=== PATIENT | female | born 1960 | race Caucasian/White ===

== ENCOUNTER 2017-11-02 15:28 | Inpatient (IN) | payer SELFPAY ==
[~2017-11-02] VITALS: Ht 154.9 cm; Wt 62.0 kg
[2017-11-02] MEDS ORDERED: BENTYL 20MG20 MG/TAB PO (15:37)
[2017-11-02] MEDS ORDERED: AMITRIPTYLINE H25 M1 PO (15:37)
[2017-11-02] MEDS ORDERED: TAGAMET HB200 MG PO (15:38)
[2017-11-02 17:27] LABS: COLLECTION METHOD CLEAN CATCH
[2017-11-02 17:30] LABS: BASO # 0.1 (0.0-0.2); BASO % 0.5 % (0.0-2.0); EOS # 0.1 (0.0-0.7); EOS % 0.6 % (0-4.0); GRAN % 73.2 % (42.2-75.2); HEMOGLOBIN 15.5 g/dl (12.5-16.0); LYMPH # 1.8 (1.2-3.4); LYMPH % 16.8 % (20.0-51.0); MEAN CELL VOLUME 93 fl (80.0-100.0); MEAN CORPUSCULAR HEMOGLOBIN 31 pg (27.0-31.0); MEAN CORPUSCULAR HGB CONC 33 g/dl (33.0-37.0); MEAN PLATELET VOLUME 9.5 fl (7.4-10.4); MONO # 0.9 (0.1-0.6); MONO % 8.4 % (1.7-9.3); PLATELET COUNT 486 K/mm3 (130-400); RED BLOOD COUNT 5.06 M/mm3 (4.10-5.30); REDCELL DISTRIBUTION WIDTH-CV 14.2 % (11.5-14.5)
[2017-11-02 17:35] LABS: MUCOUS Present /lpf; PH 5 (5-8); URINE APPEARANCE Hazy; URINE BACTERIA Rare /hpf; URINE BILIRUBIN Positive (NEGATIVE); URINE BLOOD Negative (NEGATIVE); URINE COLOR Amber; URINE GLUCOSE Negative (NEGATIVE); URINE KETONE 2+ (NEGATIVE); URINE LEUKOCYTE ESTERASE Negative (NEGATIVE); URINE NITRATE Negative (NEGATIVE); URINE PROTEIN(semi-quant) 2+ (NEGATIVE); URINE UROBILINOGEN >=4.0 mg/dL (NEGATIVE)
[2017-11-02 17:43] LABS: ALBUMIN 4.5 gm/dL (3.5-5.0); BILIRUBIN,TOTAL 0.7 mg/dL (0.0-1.0); CALCIUM 10.4 mg/dL (8.4-10.2); CREATININE, serum 0.73 mg/dL (0.52-1.25); POTASSIUM 3.7 mmol/L (3.4-5.0); TOTAL PROTEIN 8.3 gm/dL (6.4-8.2)
[2017-11-02 21:36] VITALS: BP 167/99; PULSE 110; TEMP 98
[2017-11-03 01:54] VITALS: BP 160/97; PULSE 97; TEMP 98.1
[2017-11-03 05:10] VITALS: BP 163/89; PULSE 93; TEMP 98.3
[2017-11-03 10:12] VITALS: BP 154/91; PULSE 98; TEMP 98.1
[2017-11-03 13:48] VITALS: BP 137/91; PULSE 100; TEMP 98.2
[2017-11-03 17:59] VITALS: BP 151/92; PULSE 96; TEMP 98.1
[2017-11-03 21:48] VITALS: BP 153/83; PULSE 82; TEMP 98.3
[2017-11-04] VITALS (7 sets, daily range): BP systolic 138–175; BP diastolic 71–91; PULSE 52–77; TEMP 97.5–98.4
[2017-11-04 07:47] LABS: MEAN CELL VOLUME 93 fl (80.0-100.0); MEAN CORPUSCULAR HGB CONC 33 g/dl (33.0-37.0); MEAN PLATELET VOLUME 9.7 fl (7.4-10.4); PLATELET COUNT 441 K/mm3 (130-400); RED BLOOD COUNT 3.99 M/mm3 (4.10-5.30)
[2017-11-04 07:50] LABS: HEMATOCRIT 36.9 % (37.0-47.0); HEMOGLOBIN 12.2 g/dl (12.5-16.0); MEAN CORPUSCULAR HEMOGLOBIN 31 pg (27.0-31.0)
[2017-11-04 07:57] LABS: CALCIUM 9.4 mg/dL (8.4-10.2); CREATININE, serum 0.53 mg/dL (0.52-1.25); POTASSIUM 3.2 mmol/L (3.4-5.0)
[2017-11-04 08:21] LABS: C-REACTIVE PROTEIN 6.6 mg/dL (0.0-0.9)
[2017-11-05 06:17] VITALS: BP 158/74; PULSE 54; TEMP 97.7
[2017-11-05 06:48] LABS: MEAN CELL VOLUME 91 fl (80.0-100.0); MEAN CORPUSCULAR HGB CONC 33 g/dl (33.0-37.0); MEAN PLATELET VOLUME 9.8 fl (7.4-10.4); PLATELET COUNT 380 K/mm3 (130-400); RED BLOOD COUNT 3.52 M/mm3 (4.10-5.30); REDCELL DISTRIBUTION WIDTH-CV 14.3 % (11.5-14.5)
[2017-11-05 07:01] LABS: HEMOGLOBIN 10.7 g/dl (12.5-16.0); MEAN CORPUSCULAR HEMOGLOBIN 30 pg (27.0-31.0)
[2017-11-05 07:04] LABS: BILIRUBIN,TOTAL 0.1 mg/dL (0.0-1.0); C-REACTIVE PROTEIN 4.4 mg/dL (0.0-0.9); CALCIUM 8.9 mg/dL (8.4-10.2); CREATININE, serum 0.55 mg/dL (0.52-1.25)
[2017-11-05 07:14] VITALS: BP 164/70; PULSE 53; TEMP 97.7
[2017-11-05 07:25] LABS: POTASSIUM 2.7 mmol/L (3.4-5.0)
[2017-11-05 10:28] VITALS: BP 138/63; PULSE 73; TEMP 97.6
[2017-11-05 12:30] VITALS: BP 149/95; PULSE 78; TEMP 97.4
== END 2017-11-05 15:35 | disposition home or self-care (01) | DRG 392 ==
LOC: COL.ER 15:28 → SURG 19:15
PROVIDERS: Emergency Medicine; Internal Medicine Gastroenterology; Surgery
PROC: 0DJD8ZZ Inspection of Lower Intestinal Tract, Via Natural or Artificial Opening Endoscopic (ICD-10-PCS; principal; 2017-11-04 15:00)
DX: K52.9 Noninfective gastroenteritis and colitis, unspecified (principal); K80.20 Calculus of gallbladder without cholecystitis without obstruction; F17.210 Nicotine dependence, cigarettes, uncomplicated
CPT/HCPCS: J0696; J1650; J1956; J2270; J2405; J2704; J2920; J3480; J7030; J7512; Q9967

== ENCOUNTER → 2017-12-02 | Outpatient (CLI) | payer SELFPAY ==
[~2017-12-02] MED LIST: AMITRIPTYLINE H25 M1 PO; BENTYL 20MG20 MG/TAB PO; TAGAMET HB200 MG PO
== END ==
LOC: COL.RAD 11:22
DX: K59.8 Other specified functional intestinal disorders (principal)
CPT/HCPCS: Q9967

== ENCOUNTER 2018-02-10 13:00 | Observation (INO) | payer SELFPAY ==
[~2018-02-10] VITALS: Ht 153.7 cm; Wt 73.8 kg
[2018-02-10 14:06] LABS: COLLECTION METHOD CLEAN CATCH
[2018-02-10 14:09] LABS: BASO # 0.1 (0.0-0.2); BASO % 0.3 % (0.0-2.0); EOS % 0.1 % (0-4.0); GRAN # 14.7 (1.4-6.5); GRAN % 89.9 % (42.2-75.2); HEMATOCRIT 46.5 % (37.0-47.0); HEMOGLOBIN 15.3 g/dl (12.5-16.0); LYMPH # 0.8 (1.2-3.4); LYMPH % 4.7 % (20.0-51.0); MEAN CELL VOLUME 96 fl (80.0-100.0); MEAN CORPUSCULAR HEMOGLOBIN 31 pg (27.0-31.0); MEAN CORPUSCULAR HGB CONC 33 g/dl (33.0-37.0); MEAN PLATELET VOLUME 9.1 fl (7.4-10.4); MONO # 0.8 (0.1-0.6); MONO % 4.8 % (1.7-9.3); PLATELET COUNT 588 K/mm3 (130-400); RED BLOOD COUNT 4.87 M/mm3 (4.10-5.30); REDCELL DISTRIBUTION WIDTH-CV 14.1 % (11.5-14.5)
[2018-02-10 14:19] LABS: MUCOUS Present /lpf; PH 5 (5-8); SQUAMOUS EPITHELIAL 0-2 /hpf; URINE APPEARANCE Hazy; URINE BACTERIA None Seen /hpf; URINE BILIRUBIN Negative (NEGATIVE); URINE BLOOD Negative (NEGATIVE); URINE COLOR Yellow; URINE GLUCOSE Negative (NEGATIVE); URINE KETONE 1+ (NEGATIVE); URINE LEUKOCYTE ESTERASE Negative (NEGATIVE); URINE NITRATE Negative (NEGATIVE); URINE PROTEIN(semi-quant) 2+ (NEGATIVE); URINE RBC 0-2 /hpf
[2018-02-10 14:22] LABS: ALBUMIN 4.3 gm/dL (3.5-5.0); BILIRUBIN,TOTAL 0.8 mg/dL (0.0-1.0); CALCIUM 10.2 mg/dL (8.4-10.2); CREATININE, serum 0.65 mg/dL (0.52-1.25); POTASSIUM 4.3 mmol/L (3.4-5.0); TOTAL PROTEIN 8.8 gm/dL (6.4-8.2)
[2018-02-10 17:55] VITALS: PULSE 97; TEMP 97.9
[2018-02-10 19:50] VITALS: BP 169/73; PULSE 102; TEMP 98.3
[2018-02-11] VITALS (11 sets, daily range): BP systolic 114–166; BP diastolic 55–95; PULSE 59–104; TEMP 98–98.8
[2018-02-11] MEDS ORDERED: NORCO 325 MG-51 TAB PO (13:53)
== END 2018-02-11 15:53 | disposition home or self-care (01) ==
LOC: COL.ER 13:00 → SURG 16:37
PROVIDERS: Emergency Medicine
DX: K80.10 Calculus of gallbladder with chronic cholecystitis without obstruction (principal); Z93.3 Colostomy status; F17.210 Nicotine dependence, cigarettes, uncomplicated
CPT/HCPCS: G0378; J0690; J0696; J1100; J1170; J1885; J2270; J2310; J2405; J2704; J7030; J7120

== ENCOUNTER 2018-03-04 21:27 | Emergency (ER) | payer OTHER ==
[~2018-03-04] VITALS: Ht 154.9 cm; Wt 72.7 kg
[~2018-03-04 21:27] MED LIST changes: +NORCO 325 MG-51 TAB PO
[2018-03-04 21:32] VITALS: TEMP 96.9
[2018-03-04 21:59] LABS: BASO # 0.1 (0.0-0.2); BASO % 0.4 % (0.0-2.0); EOS # 0.2 (0.0-0.7); EOS % 1.1 % (0-4.0); GRAN # 10.9 (1.4-6.5); GRAN % 77.3 % (42.2-75.2); HEMATOCRIT 47.7 % (37.0-47.0); HEMOGLOBIN 15.6 g/dl (12.5-16.0); LYMPH # 2.1 (1.2-3.4); LYMPH % 14.9 % (20.0-51.0); MEAN CELL VOLUME 95 fl (80.0-100.0); MEAN CORPUSCULAR HEMOGLOBIN 31 pg (27.0-31.0); MEAN CORPUSCULAR HGB CONC 33 g/dl (33.0-37.0); MEAN PLATELET VOLUME 9.1 fl (7.4-10.4); MONO # 0.8 (0.1-0.6); MONO % 5.8 % (1.7-9.3); PLATELET COUNT 642 K/mm3 (130-400); RED BLOOD COUNT 5.05 M/mm3 (4.10-5.30); REDCELL DISTRIBUTION WIDTH-CV 13.5 % (11.5-14.5)
[2018-03-04 22:07] LABS: ALBUMIN 4.6 gm/dL (3.5-5.0); BILIRUBIN,TOTAL 0.9 mg/dL (0.0-1.0); CALCIUM 10.6 mg/dL (8.4-10.2); CREATININE, serum 0.74 mg/dL (0.52-1.25); POTASSIUM 4.2 mmol/L (3.4-5.0); TOTAL PROTEIN 9.7 gm/dL (6.4-8.2)
[2018-03-04 22:30] LABS: INR 1.1 (0.8-3.0)
[2018-03-05 04:00] VITALS: BP 153/99; PULSE 96
== END 2018-03-05 04:28 | disposition short-term general hospital (02) ==
LOC: COL.ER 21:27 → SURG 23:03 → COL.ER 23:03 → SURG 23:03 → COL.ER 03-05 04:28
PROVIDERS: Emergency Medicine
DX: K50.00 Crohn's disease of small intestine without complications (principal); F17.210 Nicotine dependence, cigarettes, uncomplicated; Z98.51 Tubal ligation status; Z98.890 Other specified postprocedural states; Z90.49 Acquired absence of other specified parts of digestive tract
CPT/HCPCS: J0744; J1170; J2405; J2550; J2765; J3010; J7030; J7050; Q9967

== ENCOUNTER 2018-03-23 19:05 | Inpatient (IN) | payer OTHER ==
[~2018-03-23] VITALS: Ht 154.9 cm; Wt 73.1 kg
[2018-03-23 19:35] LABS: BASO # 0.1 (0.0-0.2); BASO % 0.4 % (0.0-2.0); EOS # 0.1 (0.0-0.7); EOS % 0.8 % (0-4.0); GRAN # 10.4 (1.4-6.5); GRAN % 77.2 % (42.2-75.2); HEMATOCRIT 47.2 % (37.0-47.0); HEMOGLOBIN 15.6 g/dl (12.5-16.0); LYMPH # 2.2 (1.2-3.4); LYMPH % 16.3 % (20.0-51.0); MEAN CELL VOLUME 92 fl (80.0-100.0); MEAN CORPUSCULAR HEMOGLOBIN 30 pg (27.0-31.0); MEAN CORPUSCULAR HGB CONC 33 g/dl (33.0-37.0); MEAN PLATELET VOLUME 8.8 fl (7.4-10.4); MONO # 0.7 (0.1-0.6); PLATELET COUNT 547 K/mm3 (130-400); RED BLOOD COUNT 5.15 M/mm3 (4.10-5.30); REDCELL DISTRIBUTION WIDTH-CV 13.9 % (11.5-14.5)
[2018-03-23 19:51] LABS: ALBUMIN 4.8 gm/dL (3.5-5.0); C-REACTIVE PROTEIN 4.7 mg/dL (0.0-0.9); CALCIUM 10.9 mg/dL (8.4-10.2); CREATININE, serum 0.83 mg/dL (0.52-1.25); POTASSIUM 3.7 mmol/L (3.4-5.0)
[2018-03-23 21:55] VITALS: BP 162/123; PULSE 112; TEMP 97.7
[2018-03-24] VITALS (8 sets, daily range): BP systolic 136–185; BP diastolic 73–117; PULSE 75–116; TEMP 98.2–99
[2018-03-24 06:57] LABS: HEMATOCRIT 43.8 % (37.0-47.0); HEMOGLOBIN 14.8 g/dl (12.5-16.0); MEAN CELL VOLUME 91 fl (80.0-100.0); MEAN CORPUSCULAR HEMOGLOBIN 31 pg (27.0-31.0); MEAN CORPUSCULAR HGB CONC 34 g/dl (33.0-37.0); MEAN PLATELET VOLUME 9.3 fl (7.4-10.4); PLATELET COUNT 517 K/mm3 (130-400); RED BLOOD COUNT 4.84 M/mm3 (4.10-5.30); REDCELL DISTRIBUTION WIDTH-CV 14.1 % (11.5-14.5)
[2018-03-24 07:47] LABS: BAND 46 % (0-10); LYMPHOCYTE 9 % (20.0-51.0); NEUTROPHILS 43 % (42.0-75.2)
[2018-03-24 07:48] LABS: PLATELET ESTIMATE INCREASED (NORMAL)
[2018-03-24 10:45] LABS: CALCIUM 9.4 mg/dL (8.4-10.2); CREATININE, serum 0.61 mg/dL (0.52-1.25); POTASSIUM 4.1 mmol/L (3.4-5.0)
[2018-03-25 04:32] VITALS: BP 123/68; PULSE 82; TEMP 97.9
[2018-03-25 07:32] VITALS: BP 134/68; PULSE 61; TEMP 98.2
[2018-03-25 11:16] VITALS: BP 138/63; PULSE 62; TEMP 98.2
[2018-03-25 15:10] VITALS: BP 143/79; PULSE 59; TEMP 98
[2018-03-25 19:51] VITALS: BP 153/70; PULSE 43; TEMP 98.2
[2018-03-26 03:52] VITALS: BP 130/58; PULSE 56; TEMP 98
[2018-03-26 07:43] VITALS: BP 151/69; PULSE 46; TEMP 97.9
[2018-03-26 10:47] VITALS: BP 150/66; PULSE 54; TEMP 98.3
[2018-03-26] MEDS ORDERED: PREDNISONE 5MG5 MG PO (15:54)
[2018-03-26 16:33] VITALS: BP 167/47; PULSE 64; TEMP 98.6
== END 2018-03-26 22:10 | disposition home or self-care (01) | DRG 386 ==
LOC: COL.ER 19:05 → SURG 20:51
PROVIDERS: Emergency Medicine; Nurse Practitioner Family; Surgery
DX: K50.812 Crohn's disease of both small and large intestine with intestinal obstruction (principal); Z91.14 Patient's other noncompliance with medication regimen
CPT/HCPCS: 99223; 99232-AI; G0378; J0360; J0744; J1170; J1720; J2405; J2550; J7030; Q9967

== ENCOUNTER 2018-07-14 05:22 | Inpatient (IN) | payer OTHER ==
[~2018-07-14] VITALS: Ht 152.4 cm; Wt 81.5 kg
[~2018-07-14 05:22] MED LIST changes: +PREDNISONE 5MG5 MG PO
[2018-07-14 05:48] LABS: BASO % 0.4 % (0.0-2.0); EOS # 0.2 (0.0-0.7); EOS % 2.5 % (0-4.0); GRAN # 6.7 (1.4-6.5); GRAN % 72.1 % (42.2-75.2); HEMATOCRIT 42.8 % (37.0-47.0); HEMOGLOBIN 13.5 g/dl (12.5-16.0); LYMPH # 1.8 (1.2-3.4); LYMPH % 19.9 % (20.0-51.0); MEAN CELL VOLUME 93 fl (80.0-100.0); MEAN CORPUSCULAR HEMOGLOBIN 29 pg (27.0-31.0); MEAN CORPUSCULAR HGB CONC 32 g/dl (33.0-37.0); MONO # 0.4 (0.1-0.6); MONO % 4.6 % (1.7-9.3); PLATELET COUNT 455 K/mm3 (130-400); RED BLOOD COUNT 4.62 M/mm3 (4.10-5.30); REDCELL DISTRIBUTION WIDTH-CV 14.8 % (11.5-14.5)
[2018-07-14 06:03] LABS: ALBUMIN 4.4 gm/dL (3.5-5.0); BILIRUBIN,TOTAL 0.6 mg/dL (0.0-1.0); C-REACTIVE PROTEIN 3.8 mg/dL (0.0-0.9); CREATININE, serum 0.88 mg/dL (0.52-1.25); POTASSIUM 4.2 mmol/L (3.4-5.0); TOTAL PROTEIN 8.3 gm/dL (6.4-8.2)
[2018-07-14] MEDS ORDERED: APRISO0.375 GM PO (06:20)
[2018-07-14] MEDS ORDERED: HCTZ 25MG TAB25 MG PO (06:21)
[2018-07-14] MEDS ORDERED: PRINIVIL20 MG PO (06:21)
[2018-07-14] MEDS ORDERED: TAGAMET200 MG PO (06:22)
[2018-07-14] MEDS ORDERED: IMODIUM 2MG CAPS2 MG PO (06:23)
[2018-07-14 08:54] LABS: COLLECTION METHOD CLEAN CATCH
[2018-07-14 09:10] LABS: MUCOUS Present /lpf; PH 5 (5-8); URINE APPEARANCE Cloudy; URINE BACTERIA Rare /hpf; URINE BILIRUBIN Negative (NEGATIVE); URINE BLOOD Negative (NEGATIVE); URINE COLOR Yellow; URINE GLUCOSE Negative (NEGATIVE); URINE KETONE Negative (NEGATIVE); URINE LEUKOCYTE ESTERASE 3+ (NEGATIVE); URINE NITRATE Negative (NEGATIVE); URINE PROTEIN(semi-quant) Negative (NEGATIVE); URINE UROBILINOGEN Negative (NEGATIVE)
[2018-07-14 11:41] VITALS: BP 154/84; PULSE 92; TEMP 98
[2018-07-14 11:43] VITALS: BP 154/84; PULSE 92; TEMP 98
[2018-07-14 16:09] VITALS: BP 153/88; PULSE 113; TEMP 97.7
[2018-07-14 18:29] VITALS: BP 153/82; PULSE 121; TEMP 97.8
[2018-07-14 21:44] VITALS: BP 144/91; PULSE 114; TEMP 98
[2018-07-15 04:18] VITALS: BP 113/73; PULSE 97; TEMP 98
[2018-07-15 06:28] LABS: HEMATOCRIT 38.8 % (37.0-47.0); HEMOGLOBIN 12.1 g/dl (12.5-16.0); MEAN CELL VOLUME 94 fl (80.0-100.0); MEAN CORPUSCULAR HEMOGLOBIN 29 pg (27.0-31.0); MEAN CORPUSCULAR HGB CONC 31 g/dl (33.0-37.0); MEAN PLATELET VOLUME 9.4 fl (7.4-10.4); PLATELET COUNT 439 K/mm3 (130-400); RED BLOOD COUNT 4.12 M/mm3 (4.10-5.30); REDCELL DISTRIBUTION WIDTH-CV 14.8 % (11.5-14.5)
[2018-07-15 06:43] LABS: ALBUMIN 3.5 gm/dL (3.5-5.0); BILIRUBIN,TOTAL 0.4 mg/dL (0.0-1.0); CALCIUM 8.3 mg/dL (8.4-10.2); CREATININE, serum 0.77 mg/dL (0.52-1.25); MAGNESIUM 1.7 mg/dL (1.6-2.3); POTASSIUM 4.6 mmol/L (3.4-5.0); TOTAL PROTEIN 6.7 gm/dL (6.4-8.2)
[2018-07-15 06:55] LABS: BAND 25 % (0-10); LYMPHOCYTE 6 % (20.0-51.0); NEUTROPHILS 67 % (42.0-75.2); PLATELET ESTIMATE INCREASED (NORMAL); STOMATOCYTE 1+
[2018-07-15 07:27] VITALS: BP 109/64; PULSE 98; TEMP 98.4
[2018-07-15 11:54] VITALS: BP 107/64; PULSE 89; TEMP 98
[2018-07-15 16:04] VITALS: BP 98/53; PULSE 84; TEMP 97.4
[2018-07-15 21:55] VITALS: BP 124/64; PULSE 85; TEMP 97.9
[2018-07-16 03:43] VITALS: BP 119/66; PULSE 74; TEMP 97.8
[2018-07-16 06:13] LABS: BASO % 0.1 % (0.0-2.0); GRAN # 7.5 (1.4-6.5); GRAN % 88.5 % (42.2-75.2); LYMPH # 0.6 (1.2-3.4); LYMPH % 6.5 % (20.0-51.0); MEAN CELL VOLUME 96 fl (80.0-100.0); MEAN CORPUSCULAR HGB CONC 30 g/dl (33.0-37.0); MEAN PLATELET VOLUME 9.4 fl (7.4-10.4); MONO # 0.4 (0.1-0.6); MONO % 4.2 % (1.7-9.3); RED BLOOD COUNT 3.12 M/mm3 (4.10-5.30); REDCELL DISTRIBUTION WIDTH-CV 15.2 % (11.5-14.5)
[2018-07-16 06:17] LABS: ALANINE AMINOTRANSFERASE 82 U/L (9-52); ALKALINE PHOSPHATASE 75 U/L (50-136); ANION GAP 5 mmol/L (7-16); AST,SGOT 37 U/L (15-37); BILIRUBIN,TOTAL < 0.1 mg/dL (0.0-1.0); BLOOD UREA NITROGEN 13 mg/dL (7-17); CALCIUM 7.8 mg/dL (8.4-10.2); CARBON DIOXIDE 22 mmol/L (22-30); CHLORIDE 113 mmol/L (98-107); CREATININE, serum 0.62 mg/dL (0.52-1.25); GLUCOSE 138 mg/dL (74-106); POTASSIUM 3.8 mmol/L (3.4-5.0); SODIUM 140 mmol/L (137-145); TOTAL PROTEIN 5.9 gm/dL (6.4-8.2)
[2018-07-16 06:59] LABS: HEMATOCRIT 29.9 % (37.0-47.0); HEMOGLOBIN 9.1 g/dl (12.5-16.0); MEAN CORPUSCULAR HEMOGLOBIN 29 pg (27.0-31.0); PLATELET COUNT 329 K/mm3 (130-400)
[2018-07-16 08:06] VITALS: BP 130/64; PULSE 73; TEMP 97.8
[2018-07-16 11:22] VITALS: BP 138/81; PULSE 69; TEMP 97.9
[2018-07-16] MEDS ORDERED: NORCO 325 MG-51 TAB PO (11:51)
[2018-07-16] MEDS ORDERED: PREDNISONE10 MG PO (11:51)
== END 2018-07-16 13:24 | disposition home or self-care (01) | DRG 387 ==
LOC: COL.ER 05:22 → MEDICAL 08:30
PROVIDERS: Emergency Medicine; Internal Medicine; Physician Assistant
DX: K50.012 Crohn's disease of small intestine with intestinal obstruction (principal); I10 Essential (primary) hypertension; Z87.891 Personal history of nicotine dependence
CPT/HCPCS: 99222-AI; 99232-AI; 99239; C9113; J0360; J0696; J1650; J1956; J2270; J2405; J2550; J2930; J7030; J7512; Q9967

== ENCOUNTER 2018-11-14 07:13 | Inpatient (IN) | payer OTHER ==
[~2018-11-14] VITALS: Ht 152.4 cm; Wt 88.3 kg
[~2018-11-14 07:13] MED LIST changes: +APRISO0.375 GM PO; +HCTZ 25MG TAB25 MG PO; +IMODIUM 2MG CAPS2 MG PO; +PREDNISONE10 MG PO; +PRINIVIL20 MG PO; +TAGAMET200 MG PO
[2018-11-14 07:48] LABS: BASO # 0.1 (0.0-0.2); BASO % 0.4 % (0.0-2.0); EOS # 0.1 (0.0-0.7); EOS % 0.9 % (0-4.0); GRAN # 10.2 (1.4-6.5); GRAN % 82.4 % (42.2-75.2); HEMATOCRIT 43.1 % (37.0-47.0); HEMOGLOBIN 13.8 g/dl (12.5-16.0); LYMPH # 1.4 (1.2-3.4); LYMPH % 11.4 % (20.0-51.0); MEAN CELL VOLUME 96 fl (80.0-100.0); MEAN CORPUSCULAR HEMOGLOBIN 31 pg (27.0-31.0); MEAN CORPUSCULAR HGB CONC 32 g/dl (33.0-37.0); MEAN PLATELET VOLUME 8.9 fl (7.4-10.4); MONO # 0.5 (0.1-0.6); MONO % 4.4 % (1.7-9.3); PLATELET COUNT 504 K/mm3 (130-400); RED BLOOD COUNT 4.47 M/mm3 (4.10-5.30); REDCELL DISTRIBUTION WIDTH-CV 14.5 % (11.5-14.5)
[2018-11-14 07:58] LABS: ALBUMIN 4.5 gm/dL (3.5-5.0); BILIRUBIN,TOTAL 0.6 mg/dL (0.0-1.0); C-REACTIVE PROTEIN 4.4 mg/dL (0.0-0.9); CALCIUM 10.1 mg/dL (8.4-10.2); CREATININE, serum 1.18 mg/dL (0.52-1.25); POTASSIUM 4.1 mmol/L (3.4-5.0); TOTAL PROTEIN 8.6 gm/dL (6.4-8.2)
[2018-11-14 12:38] VITALS: BP 134/72; PULSE 99; TEMP 98.5
--- NOTE | 2018-11-14 14:00 | NUR ---
Arrived to the room at this time. The call light is in place. Pain reported and nausea present. PRN pain and nausea medication provided. IV fluids running at 125ml/hr. The patient was oriented to the room and initial assessment was completed.
--- NOTE | 2018-11-14 19:12 | NUR ---
Nausea and pain decreased this afternoon. The patient was offered PRN pain medications and she denied the need. The patient reported she would call as needed for pain or nausea. IVF at 125ml/hr. The call light was in place and family is at the bedside.
[2018-11-14 19:22] VITALS: BP 126/66; PULSE 94; TEMP 98.7
--- NOTE | 2018-11-14 23:45 | NUR ---
Completed assessment and medication administration; PT tolerated all cares well; PT continues NS at 125ml/hr to 20G in left wrist; A&Ox3, BS hypoactive x4, minimal movement audible, PT continue on bowel rest with IV fluids; morphine administered for reported pain at 2300; PT denies further needs or discomfort at time of assessment; Call light placed within reach on bed; Will continue to monitor; 3rd floor charge notified that 5 page was not completed or passed on as incomplete during report; PT arrived to floor at approximately 1230 in afternoon. CDA
[2018-11-15 00:42] VITALS: BP 126/77; PULSE 84; TEMP 98.4
--- NOTE | 2018-11-15 02:38 | NUR ---
PT resting well in bed; No visible needs or concerns; placed call light within reach in bed; replaced NS IV bag; Will continue to monitor. CDA
[2018-11-15 05:59] LABS: BASO % 0.3 % (0.0-2.0); GRAN # 7.1 (1.4-6.5); GRAN % 89.4 % (42.2-75.2); LYMPH # 0.6 (1.2-3.4); LYMPH % 7.8 % (20.0-51.0); MEAN CELL VOLUME 98 fl (80.0-100.0); MEAN CORPUSCULAR HGB CONC 31 g/dl (33.0-37.0); MEAN PLATELET VOLUME 8.9 fl (7.4-10.4); MONO # 0.2 (0.1-0.6); MONO % 2.1 % (1.7-9.3); REDCELL DISTRIBUTION WIDTH-CV 14.4 % (11.5-14.5)
[2018-11-15 06:18] LABS: HEMATOCRIT 33.4 % (37.0-47.0); HEMOGLOBIN 10.4 g/dl (12.5-16.0); MEAN CORPUSCULAR HEMOGLOBIN 31 pg (27.0-31.0)
[2018-11-15 06:19] LABS: PLATELET COUNT 381 K/mm3 (130-400)
[2018-11-15 06:22] LABS: ALBUMIN 3.3 gm/dL (3.5-5.0); BILIRUBIN,TOTAL 0.3 mg/dL (0.0-1.0); CALCIUM 8.3 mg/dL (8.4-10.2); CREATININE, serum 0.8 mg/dL (0.52-1.25); POTASSIUM 4.3 mmol/L (3.4-5.0); TOTAL PROTEIN 6.5 gm/dL (6.4-8.2)
--- NOTE | 2018-11-15 07:26 | NUR ---
Gave report to WILSON Aponte. NORAA
[2018-11-15 08:25] VITALS: BP 110/57; PULSE 66; TEMP 98.1
--- NOTE | 2018-11-15 09:31 | NUR ---
Assessment complete.patient awake,alert and oriented x4.denies pain or discomfort at this time.denies N/V.bowel sounds present and audible.patient reports having a bowel movement this morning.pt NPO pending consults with DR. Watkins.will continue to monitor.call light in reach
--- NOTE | 2018-11-15 11:15 | NUR ---
JR met with the patient to discuss a discharge plan. The patient lives in [place] with her and son. The patient reports independence with ADLs and does not have any DME. The patient's PCP is at [facility] in [place]. The patient receives her medications from [facility] and [facility] in [place]. The patient does not have advanced directives in the EMR and she was not interested in obtaining a DPOA-HC at this time. Upon discharge the plan is to return home. There are no additional needs at this time.
[2018-11-15 11:31] VITALS: BP 120/62; PULSE 73; TEMP 98.7
[2018-11-15 16:06] VITALS: BP 109/62; PULSE 60; TEMP 98.4
--- NOTE | 2018-11-15 18:11 | NUR ---
pt resting in bed at this time.IVF discontinued.denies needs at this time.diet advanced.denies N/V.tolerates diet well.no other needs voiced at this time.call light in reach
--- NOTE | 2018-11-15 19:04 | NUR ---
report given to WILSON James.
[2018-11-15 19:29] VITALS: BP 107/53; PULSE 61; TEMP 98.1
--- NOTE | 2018-11-15 21:15 | NUR ---
Completed assessment and medication discussion for PT; A&Ox3, BS active, BM 11/15, surgical consult resolution is medical management without surgical intervention; Progressed to clear diet; Tolerating advancement well; Minimal pain reported during assessment; Declined PRN medication at this time; PT declined further needs at time of exit, call light placed within reach on bed, Will continue to monitor. CDA
[2018-11-15 23:54] VITALS: BP 108/56; PULSE 55; TEMP 97.8
--- NOTE | 2018-11-16 02:34 | NUR ---
PT resting well in bed; No verbal or visible indicators of pain or discomforts; Call light placed within reach; Will continue to monitor. CDA
[2018-11-16 04:46] VITALS: BP 127/71; PULSE 59; TEMP 97.5
--- NOTE | 2018-11-16 06:53 | NUR ---
Report given to WILSON Guallpa. CDA
[2018-11-16 07:47] LABS: BASO % 0.1 % (0.0-2.0); GRAN % 86.3 % (42.2-75.2); HEMOGLOBIN 10.3 g/dl (12.5-16.0); LYMPH # 0.8 (1.2-3.4); LYMPH % 9.6 % (20.0-51.0); MEAN CELL VOLUME 98 fl (80.0-100.0); MEAN CORPUSCULAR HEMOGLOBIN 30 pg (27.0-31.0); MEAN CORPUSCULAR HGB CONC 31 g/dl (33.0-37.0); MEAN PLATELET VOLUME 9.1 fl (7.4-10.4); MONO # 0.2 (0.1-0.6); MONO % 2.9 % (1.7-9.3); PLATELET COUNT 374 K/mm3 (130-400); RED BLOOD COUNT 3.39 M/mm3 (4.10-5.30); REDCELL DISTRIBUTION WIDTH-CV 14.4 % (11.5-14.5)
[2018-11-16 08:05] LABS: ALBUMIN 3.6 gm/dL (3.5-5.0); CALCIUM 8.6 mg/dL (8.4-10.2); CREATININE, serum 0.77 mg/dL (0.52-1.25); POTASSIUM 4.1 mmol/L (3.4-5.0); TOTAL PROTEIN 6.6 gm/dL (6.4-8.2)
[2018-11-16 08:07] LABS: HEMATOCRIT 33.3 % (37.0-47.0)
[2018-11-16 08:20] LABS: BILIRUBIN,DIRECT 0.2 mg/dL (0.0-0.4); BILIRUBIN,TOTAL 0.2 mg/dL (0.0-1.0)
--- NOTE | 2018-11-16 08:46 | NUR ---
Assessment completed, alert/oriented, vital signs stable, denies pain or discomfort, she has been tolerating CL diet well and we are advancing to AHA this morning, she reports a BM last night, BS are still hypoactive this morning, abdomen is soft and non-tender, she denies any N/V, heart RRR, lungS CTA, hoping to be discharged home today if she can tolerate advanced diet
[2018-11-16 08:52] VITALS: BP 138/65; PULSE 77; TEMP 97.8
[2018-11-16] MEDS ORDERED: PREDNISONE10 MG PO (09:10)
--- NOTE | 2018-11-16 11:36 | NUR ---
Discharge instructions reviewed with the patient, instructed to follow up with GI in 3-4 weeks, instructed to follow up with PCP at [facility] in [place] in 1-2 weeks, instructed to continue on a Chrons diet/ advance slowly, IV removed and tele removed, she is leaving with family, I will escort her out the door once her ride arrives
== END 2018-11-17 17:07 | disposition short-term general hospital (02) | DRG 387 ==
LOC: COL.ER 07:13 → MEDICAL 08:57
PROVIDERS: Emergency Medicine; Physician Assistant; ADMIT Hospitalist
DX: K50.012 Crohn's disease of small intestine with intestinal obstruction (principal); I10 Essential (primary) hypertension; Z87.891 Personal history of nicotine dependence; Z88.0 Allergy status to penicillin; K76.0 Fatty (change of) liver, not elsewhere classified; R73.9 Hyperglycemia, unspecified; D47.3 Essential (hemorrhagic) thrombocythemia; R00.0 Tachycardia, unspecified; E86.0 Dehydration
CPT/HCPCS: 99222-AI; 99232-AI; 99239; J2270; J2405; J2765; J2920; J2930; J7030; Q9967

== ENCOUNTER 2019-02-20 08:53 | Inpatient (IN) | payer SELFPAY ==
[~2019-02-20] VITALS: Ht 152.4 cm; Wt 94.4 kg
[2019-02-20 09:36] LABS: ALBUMIN 4.4 gm/dL (3.5-5.0); BILIRUBIN,TOTAL 0.7 mg/dL (0.0-1.0); C-REACTIVE PROTEIN 4.3 mg/dL (0.0-0.9); CREATININE, serum 1.07 (0.52-1.25); POTASSIUM 3.8 mmol/L (3.4-5.0); TOTAL PROTEIN 8.4 gm/dL (6.4-8.2)
[2019-02-20 09:39] LABS: BASO # 0.1 (0.0-0.2); BASO % 0.5 % (0.0-2.0); EOS # 0.2 (0.0-0.7); EOS % 1.7 % (0-4.0); GRAN # 8.6 (1.4-6.5); GRAN % 78.8 % (42.2-75.2); HEMATOCRIT 42.7 % (37.0-47.0); HEMOGLOBIN 13.4 g/dl (12.5-16.0); LYMPH # 1.4 (1.2-3.4); LYMPH % 12.9 % (20.0-51.0); MEAN CELL VOLUME 101 fl (80.0-100.0); MEAN CORPUSCULAR HEMOGLOBIN 32 pg (27.0-31.0); MEAN CORPUSCULAR HGB CONC 31 g/dl (33.0-37.0); MEAN PLATELET VOLUME 8.9 fl (7.4-10.4); MONO # 0.6 (0.1-0.6); MONO % 5.4 % (1.7-9.3); PLATELET COUNT 522 K/mm3 (130-400); RED BLOOD COUNT 4.25 M/mm3 (4.10-5.30); REDCELL DISTRIBUTION WIDTH-CV 16.8 % (11.5-14.5)
--- NOTE | 2019-02-20 13:30 | NUR ---
PATIENT ARRIVED TO ROOM 321-2 FROM ED. PATIENT SETTELED INTO ROOM BY PATIENT SCHEDULING COORDINATOR'S.
[2019-02-20 13:32] VITALS: BP 153/86; PULSE 94; TEMP 97.8
--- NOTE | 2019-02-20 14:54 | NUR ---
Patient sitting up in bed. Reports abdominal pain & nausea. 2 mg morphine for pain given per orders & zofran as ordered. Cool wash cloth provided & mouth swabs.
[2019-02-20 16:04] VITALS: BP 145/83; PULSE 109; TEMP 97.4
[2019-02-20 19:33] VITALS: BP 157/92; PULSE 109; TEMP 98.3
--- NOTE | 2019-02-20 19:56 | NUR ---
Patient noted to be vomiting small amount green emesis. States the nausea medication helps for a little while. Patient stated this nausea/vomiting is not as bad as her previous hospitalization. Education provided on nausea and pain medications. Abdomen noted to be firm and distended. Hypoactive bowel sounds noted. Patient stated relief from sharp pain to abdomen after medication was administered. Will continue to monitor.
[2019-02-20 22:49] VITALS: BP 132/90; PULSE 115; TEMP 98.5
--- NOTE | 2019-02-20 23:03 | NUR ---
Tanner RN, and this nurse attempted to place NG tube per PRN orders. Patient has strong gag reflex and kept dry heaving after placement. NG tube was able to get 100ml green fluid out, before patient stated she couldn't take the tube anymore and requested multiple times for us to remove it. Patient wasn't interested in the education and was insistent we take it out. NG was removed per patient request. Patient now states she feels better and has not vomited since NG placement attempt at 2029. Patient stated she would have to be "put out to have that tube put back in". Patient continues to request PRN morphine q2 hours as ordered. States it goes back and forth between a sharp pain and a cramping pain in her abdomen. Pain at its worst is a 7. Reassessment after morphine administered is 0. Will continue to monitor.
[2019-02-21 01:46] LABS: COLLECTION METHOD CLEAN CATCH
[2019-02-21 01:58] LABS: MUCOUS Present /lpf; PH 5 (5-8); URINE APPEARANCE Clear; URINE BACTERIA None Seen /hpf; URINE BILIRUBIN Negative (NEGATIVE); URINE BLOOD Negative (NEGATIVE); URINE COLOR Yellow; URINE GLUCOSE Negative (NEGATIVE); URINE KETONE Trace (NEGATIVE); URINE LEUKOCYTE ESTERASE 1+ (NEGATIVE); URINE NITRATE Negative (NEGATIVE); URINE PROTEIN(semi-quant) Negative (NEGATIVE); URINE UROBILINOGEN Negative (NEGATIVE)
[2019-02-21 03:19] VITALS: BP 144/87; PULSE 107; TEMP 98.3
--- NOTE | 2019-02-21 03:27 | NUR ---
Patient has had no emesis since staff attempted to place NG tube. Stated she did have an episode of indigestion (acid reflux) earlier, but has not vomited. Denies pain at this time. Will continue to monitor.
[2019-02-21 05:35] LABS: BASO % 0.2 % (0.0-2.0); EOS % 0.1 % (0-4.0); GRAN # 6.7 (1.4-6.5); GRAN % 78.6 % (42.2-75.2); HEMATOCRIT 38.7 % (37.0-47.0); HEMOGLOBIN 12.3 g/dl (12.5-16.0); LYMPH % 11.8 % (20.0-51.0); MEAN CELL VOLUME 100 fl (80.0-100.0); MEAN CORPUSCULAR HEMOGLOBIN 32 pg (27.0-31.0); MEAN CORPUSCULAR HGB CONC 32 g/dl (33.0-37.0); MEAN PLATELET VOLUME 8.6 fl (7.4-10.4); MONO # 0.8 (0.1-0.6); MONO % 8.9 % (1.7-9.3); PLATELET COUNT 460 K/mm3 (130-400); RED BLOOD COUNT 3.87 M/mm3 (4.10-5.30); REDCELL DISTRIBUTION WIDTH-CV 16.8 % (11.5-14.5)
[2019-02-21 06:02] LABS: ALBUMIN 3.5 gm/dL (3.5-5.0); BILIRUBIN,TOTAL 0.8 mg/dL (0.0-1.0); CALCIUM 8.6 mg/dL (8.4-10.2); CREATININE, serum 0.79 (0.52-1.25); TOTAL PROTEIN 6.6 gm/dL (6.4-8.2)
--- NOTE | 2019-02-21 06:58 | NUR ---
Report given to WILSON Sinclair.
[2019-02-21 07:35] VITALS: BP 143/79; PULSE 104; TEMP 98.1
--- NOTE | 2019-02-21 08:09 | NUR ---
Pt is awake and A/Ox4 sitting up in bed watching TV. She reports her pain a 4-5/10 and requests PRN morphine. IVF are infusing into left AC without difficulty. BS remains hypoactive. No emesis reported this morning but pt does state she is having some indigestion. Pt remains NPO, denies any other needs.
--- NOTE | 2019-02-21 10:46 | NUR ---
Plan: Patient plans to discharge home with Chacho and Son Kemar as care support. Assess: SW met with patient in the room. Patient reports that she resides in with her and uses [facility] for primary care. Patient reports that she uses [facility] on [address] for medications and does not have any insurance. Client reports that she is agreeable to financial support from counseling. Patient denies having any DME, DPOA, and transport concerns. Family will transport home. Patient denies any need for homehelath. Action: SW sent referral to [facility] on behalf of patient. NO additional needs identified.
--- NOTE | 2019-02-21 11:00 | NUR ---
Pt requested PRN morphine for 4/10 abdominal pain. Pt encouraged to ambulate around room/hallways.
[2019-02-21 11:38] VITALS: BP 116/74; PULSE 96; TEMP 98.6
[2019-02-21 16:05] VITALS: BP 95/57; PULSE 96; TEMP 98.4
[2019-02-21 19:25] VITALS: BP 110/61; PULSE 103; TEMP 98.7
--- NOTE | 2019-02-21 21:10 | NUR ---
RESTING QUIETLY. NO PAIN AT TIME OF ASSESSMENT. NO c/o NAUSEA.
[2019-02-22 04:00] VITALS: BP 100/49; PULSE 98; TEMP 98.4
--- NOTE | 2019-02-22 05:24 | NUR ---
PT HAVING LOOSE STOOLS. NO c/o PAIN. NO c/o N/V.
[2019-02-22 07:22] VITALS: BP 118/65; PULSE 89; TEMP 98.3
--- NOTE | 2019-02-22 08:56 | NUR ---
Pt is awake and A/Ox4, sitting up in chair. She states she has very mild cramping, rating pain a 1/10. Bowel sounds hypoactive. Pt passing flatus and having several loose BMs this AM. Pt advanced to clear liquids; given water, cranberry juice, and jello upon request. Tolerating those thus far. Saline lock to right hand is free of complications. Pt is up in room as tolerated. Denies any other needs, will monitor.
--- NOTE | 2019-02-22 11:28 | NUR ---
Pt is sleeping soundly in bed.
[2019-02-22 11:42] VITALS: BP 98/55; PULSE 90; TEMP 98.2
[2019-02-22 11:54] VITALS: BP 118/50; PULSE 59; TEMP 97.4
--- NOTE | 2019-02-22 14:40 | NUR ---
Pt was discharged home after able to tolerate lunch without difficulty. All discharge instructions and paperwork was reviewed with pt who expressed understanding and had no questions. Saline lock removed, catheter tip intact. Pt was escorted out of facility by staff.
== END 2019-02-22 14:41 | disposition home or self-care (01) | DRG 387 ==
LOC: COL.ER 08:53 → SURG 10:15
PROVIDERS: Family Medicine; ADMIT Surgery
DX: K50.012 Crohn's disease of small intestine with intestinal obstruction (principal); I10 Essential (primary) hypertension; Z88.0 Allergy status to penicillin; Z87.891 Personal history of nicotine dependence
CPT/HCPCS: J1650; J1956; J2270; J2405; J2550; J3010; J7030; J7120; Q9967

== ENCOUNTER 2019-02-24 15:56 | Inpatient (IN) | payer OTHER ==
[~2019-02-24] VITALS: Ht 152.4 cm; Wt 89.4 kg
[2019-03-11] VITALS (11 sets, daily range): BP systolic 94–133; BP diastolic 51–88; PULSE 59–99; TEMP 97.3–98
[2019-03-11 08:17] LABS: HEMOGLOBIN 13.1 g/dl (12.5-16.0); MEAN CELL VOLUME 96 fl (80.0-100.0); MEAN CORPUSCULAR HEMOGLOBIN 31 pg (27.0-31.0); MEAN CORPUSCULAR HGB CONC 33 g/dl (33.0-37.0); MEAN PLATELET VOLUME 8.9 fl (7.4-10.4); PLATELET COUNT 483 K/mm3 (130-400); RED BLOOD COUNT 4.19 M/mm3 (4.10-5.30); REDCELL DISTRIBUTION WIDTH-CV 14.7 % (11.5-14.5)
[2019-03-11 08:28] LABS: CALCIUM 9.3 mg/dL (8.4-10.2)
--- NOTE | 2019-03-11 08:35 | NUR ---
Dr. Walker was notified of the patient's potassium level of 2.8. He verbalized understanding and has no further orders at this time. He spoke with the patient regarding any questions/concerns she has prior to surgery and assessed her abdominal fold, where she has a yeast infection.
[2019-03-11 08:39] LABS: POTASSIUM 2.8 mmol/L (3.4-5.0)
--- NOTE | 2019-03-11 08:45 | NUR ---
The patient ambulated back to [place] [address] independently using a steady gait and appeared to tolerate the activity well. Vital signs obtained. Consent signed. 20G IV started in left forearm on second attempt, LR infusing without difficulty. Heart Reg. Lungs clear. Bowel sounds auidble. The patient has dentures in place that she is going to remove for surgery. The patient states that her dentures are "in three pieces". The patient's daughter was brought back to be at the patient's bedside. Call light is within reach. The patient denies any needs at this time. Will continue to monitor the patient.
[2019-03-11] MEDS ORDERED: ENTOCORT EC3 MG PO (09:17)
--- NOTE | 2019-03-11 09:20 | NUR ---
The patient was taken via cart to the operating room at this time. WILSON Turner assisted the patient to remove her three pieces of dentures prior to OR. The patient's belongings were taken over to PACU to be taken up with the patient when they are transferred to the third floor.
--- NOTE | 2019-03-11 14:08 | NUR ---
Patient to room 346 post op. Report received from Dana RACHEL. Patient kids were at bedside. Patient started on K+ protocol. Iv to Lfa per orders. Patient sleeping. Vss on O2. Assessment completed. Scds ble. Incision edges well approximated, open to air. [place] to SHIRLEY. WIll closely monitor.
--- NOTE | 2019-03-11 19:25 | NUR ---
Patient sitting up in bed. Continues to tolerate liquid. Fluid intake enocurged. Her urine output has been marginal. Vss blood pressure remain slightly hypotensive. Po tylenol relieved pain. Reported pain is dave discomfort. Ivf continue to infuse to Lfa. K+ replacement per orders. Incision edges all remain well approximated. Scds ble. Report to Sophie RN
--- NOTE | 2019-03-11 21:30 | NUR ---
Up to chair at bedside with supervision only. Transfers easily. Is alert and oriented x4. Denies pain. Robotic incisions to abdomen glued and dry. Haney to BSD with yellow urine. IVF infusing with IV Potassium to left forearm without redness or swelling.
--- NOTE | 2019-03-11 23:00 | NUR ---
Supervised back to bed. Transfers well. Taking oral fluids well.
[2019-03-12 00:02] VITALS: BP 101/69; PULSE 72; TEMP 97.5
--- NOTE | 2019-03-12 02:30 | NUR ---
Potassium boluses complete. Will have lab work this AM.
[2019-03-12 04:18] VITALS: BP 100/59; PULSE 74; TEMP 97.5
[2019-03-12 05:57] LABS: CALCIUM 7.6 mg/dL (8.4-10.2); CREATININE, serum 0.88 (0.52-1.25); MAGNESIUM 1.3 mg/dL (1.6-2.3); PHOSPHOROUS 2.6 mg/dL (2.5-4.5); POTASSIUM 3.7 mmol/L (3.4-5.0)
--- NOTE | 2019-03-12 06:00 | NUR ---
Takes scheduled AM ES Tylenol at this time. No concerns offered at this time.
[2019-03-12 06:02] LABS: HEMATOCRIT 29.6 % (37.0-47.0); HEMOGLOBIN 9.5 g/dl (12.5-16.0)
[2019-03-12 08:30] VITALS: BP 105/61; PULSE 97; TEMP 98.5
--- NOTE | 2019-03-12 09:56 | NUR ---
JR met with the patient to discuss discharge plan. The patient lives in [place] with her , Chacho. She reports independence with ADLs and does not use any DME. The patient receives primary care at the [facility] in [place] and she receives her medications at the [facility]. She reports difficulties affording her meds. She states that she does receive prescription assistance through [facility] and her GI doctor for her two most expensive meds. JR also educated the patient on prescription assistance through [employer]. The patient is self pay. JR consulted financial counselor, Nga. Nga plans to do a Medicaid application with the patient. The patient does not have advanced directives, but she was interested in obtaining a form for DPOA-HC. JR provided. The patient plans to return home with her upon discharge. No additional needs at this time.
--- NOTE | 2019-03-12 10:00 | NUR ---
Patient has been doing well this am. She has been up walking in the [place] with help. Urine output has been concentrated and kathy. Patient stated she has not drank much water. Encouraged patient to drink more water. Minimal complaints pain, denies nausea. Explained diet advancement and what she can eat. Patient verbalized understanding. No other changes at this time. Call light within reach.
--- NOTE | 2019-03-12 10:26 | NUR ---
First visit from the cloth wire weaver. No needs right now.
[2019-03-12 10:55] VITALS: BP 101/59; PULSE 69; TEMP 98
[2019-03-12 15:28] VITALS: BP 110/51; PULSE 77; TEMP 97.6
--- NOTE | 2019-03-12 18:30 | NUR ---
Dave catheter discontinued earlier this afternoon. Patient has voided since dave discontinued but she missed the hat in the toilet. No problems with taking out the dave, patient tolerated well. Minimal complaints of pain. Denies nausea. Encouraged patient to walk in the [place] this evening before going to bed. No other changes a this time. Call light within reach.
--- NOTE | 2019-03-12 20:00 | NUR ---
Patient sitting in chair at bedside. Denies pain. Takes scheduled Gabapentin at this time. IV site SL to left forearm, no redness or swelling. Lap sites to abdomen glued/dry as well as low transverse incision is dry. Does have chronic issues with yeast to groin and under breasts. Up independently in room.
[2019-03-12 20:31] VITALS: BP 107/50; PULSE 77; TEMP 97.5
[2019-03-13 00:17] VITALS: BP 124/62; PULSE 82; TEMP 97.8
[2019-03-13 04:43] VITALS: BP 104/56; PULSE 86; TEMP 97.8
--- NOTE | 2019-03-13 06:00 | NUR ---
Patient awake. Takes scheduled AM Tylenol at this time. Offers no concerns.
[2019-03-13 07:01] LABS: HEMOGLOBIN 10.1 g/dl (12.5-16.0)
[2019-03-13 07:11] LABS: CALCIUM 8.1 mg/dL (8.4-10.2); CREATININE, serum 0.74 (0.52-1.25); MAGNESIUM 2.1 mg/dL (1.6-2.3); POTASSIUM 3.2 mmol/L (3.4-5.0)
[2019-03-13 07:20] LABS: HEMATOCRIT 31.7 % (37.0-47.0)
--- NOTE | 2019-03-13 08:00 | NUR ---
PATIENT IS SITTING UP IN THE CHAIR THIS MORNING. PATIENT IS A&OX4. VSS. SHALLOW BREATHING NOTED. UPPER LUNG LOBES CLEAR UPON AUSCULTATION. LUNG BASES DIMINISHED BILATERALLY. PATIENT DENIES SOB OR A PRODUCTIVE COUGH. BOWEL SOUNDS ACTIVE ALL FOUR QUADRANTS. ABDOMINAL LAP SITES X4 LUDA WITH REECE SET, EDGES WELL APPROXIMATED ECCHYMOSIS NOTED AROUND INCISION SITES. 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 INT TO LEFT FOREARM. CALL LIGHT WITHIN REACH. PATIENT DENIES ANY NEEDS AT THIS TIME.
[2019-03-13 08:29] VITALS: BP 111/57; PULSE 81; TEMP 97.6
--- NOTE | 2019-03-13 11:20 | NUR ---
PATIENT'S LEFT FOREARM INT DISCONTINUED PER PENDING DISCHARGE. TIP INTACT. PATIENT TOLERATED WELL. DISCHARGE INSTRUCTIONS REVIEWED WITH PATIENT. ALL QUESTIONS ANSWERED. PATIENT PERSONAL BELONGINGS GATHERED. WAITING FOR TO ARRIVE WITH VEHICLE TO DISCHARGE.
--- NOTE | 2019-03-13 12:05 | NUR ---
PATIENT TAKEN TO PERSONAL VEHICLE VIA WHEELCHAIR BY SURGICAL STAFF. PATIENT DISCHARGED.
== END 2019-03-13 12:05 | disposition home or self-care (01) | DRG 330 ==
LOC: INPTSU 03-11 07:29 → SURG 03-11 07:29
PROVIDERS: Internal Medicine Gastroenterology; ADMIT Surgery
PROC: 0DTH4ZZ Resection of Cecum, Percutaneous Endoscopic Approach (ICD-10-PCS; principal; 2019-03-11 10:15)
DX: K50.012 Crohn's disease of small intestine with intestinal obstruction (principal); E87.1 Hypo-osmolality and hyponatremia; I10 Essential (primary) hypertension; F32.9 Major depressive disorder, single episode, unspecified; E87.6 Hypokalemia; E83.42 Hypomagnesemia; D64.9 Anemia, unspecified; I95.9 Hypotension, unspecified; K21.9 Gastro-esophageal reflux disease without esophagitis; G89.29 Other chronic pain; F17.210 Nicotine dependence, cigarettes, uncomplicated; Z88.0 Allergy status to penicillin
CPT/HCPCS: A4314; A9284; J0690; J1100; J1170; J1650; J1885; J2370; J2405; J2704; J3010; J3475; J3480; J7050; J7120

== ENCOUNTER → 2022-12-07 | Outpatient (CLI) | payer MEDICAID ==
[~2022-12-07] MED LIST changes: +ENTOCORT EC3 MG PO
== END ==
LOC: COL.RAD 10:17
DX: K76.0 Fatty (change of) liver, not elsewhere classified (principal); K50.90 Crohn's disease, unspecified, without complications; R74.8 Abnormal levels of other serum enzymes